=== PATIENT | female | born 1985 | race Caucasian/White ===

== ENCOUNTER → 2016-10-24 | Outpatient (CLI) | payer BC ==
--- NOTE | 2016-10-24 12:42 | Diagnostic Imaging Report ---
Transabdominal and transvaginal pelvic ultrasound. INDICATION: Menorrhagia. FINDINGS: The uterus is 7.6 x 4.4 x 4.2 cm. The endometrial stripe is 0.3 cm in thickness. The myometrium is slightly heterogeneous with no discrete mass. The right ovary is 2.9 x 2.6 x 2.8 cm. The left ovary is 2.1 x 3.2 x 1.6 cm. There are multiple follicles seen in each ovary. There are arterial and venous waveforms demonstrated in each ovary. IMPRESSION: Heterogeneous myometrium with no discrete mass. Consider possibility of adenomyosis. Dictated by: Dictated on workstation # [id number]
== END ==
LOC: RAD 09:29
PROVIDERS: ATTEND Obstetrics & Gynecology
DX: N92.1 Excessive and frequent menstruation with irregular cycle (principal)
CPT/HCPCS: 76830; 76856

== ENCOUNTER → 2017-06-02 | Outpatient (CLI) | payer BC ==
[~2017-06-02] VITALS: Ht 172.7 cm; Wt 105.9 kg
[~2017-06-02] MED LIST: BUPR300T51 PO; FEXO1TAB40 PO; FLUO10CA29 PO; NORT10CA PO; PANT40TA3 PO; PROP20TA5 PO; RANI150T90 PO; SPIR25TA3 PO
[2017-06-02 09:10] VITALS: BP 127/88
[2017-06-02 09:45] LABS: BASOPHILS # (AUTO) 0.1 10^3/uL (0.0-0.1); BASOPHILS % (AUTO) 1 % (0-10); EOSINOPHILS # (AUTO) 0.2 10^3/uL (0.0-0.3); EOSINOPHILS % (AUTO) 2 % (0-10); LYMPHOCYTES # (AUTO) 2.4 X 10^3 (1.0-4.0); LYMPHOCYTES % (AUTO) 31 % (12-44); MEAN CORPUSCULAR HEMOGLOBIN 27 PG (25-34); MEAN CORPUSCULAR HGB CONC 33 G/DL (32-36); MEAN CORPUSCULAR VOLUME 83 FL (80-99); MEAN PLATELET VOLUME 10.2 FL (7.4-10.4); MONOCYTES # (AUTO) 0.6 X 10^3 (0.0-1.0); MONOCYTES % (AUTO) 7 % (0-12); NEUTROPHILS # (AUTO) 4.5 X 10^3 (1.8-7.8); NEUTROPHILS % (AUTO) 59 % (42-75); PLATELET COUNT 381 10^3/uL (130-400); RED BLOOD COUNT 4.67 10^6/uL (4.35-5.85); RED CELL DISTRIBUTION WIDTH 14.2 % (10.0-14.5); WHITE BLOOD COUNT 7.7 10^3/uL (4.3-11.0)
[2017-06-02 09:47] LABS: BILIRUBIN,URINE NEGATIVE (NEGATIVE); KETONES,URINE NEGATIVE (NEGATIVE); LEUKOCYTE ESTERASE ,URINE 3+ (NEGATIVE); NITRITE,URINE NEGATIVE (NEGATIVE); PH,URINE 6 (5-9); PROTEIN,URINE 1+ (NEGATIVE); UROBILINOGEN,URINE NORMAL (NORMAL)
[2017-06-02 10:05] LABS: ANION GAP 11 MMOL/L (5-14); BLOOD UREA NITROGEN 19 MG/DL (7-18); BUN/CREATININE RATIO 22; CALCIUM 8.8 MG/DL (8.5-10.1); CARBON DIOXIDE 21 MMOL/L (21-32); CHLORIDE 106 MMOL/L (98-107); CREATININE SERUM 0.85 MG/DL (0.60-1.30); GFR ESTIMATED > 60; GLUCOSE 80 MG/DL (70-105); POTASSIUM 4.3 MMOL/L (3.6-5.0); SODIUM 138 MMOL/L (135-145)
== END ==
LOC: PREOP 08:55
PROVIDERS: ATTEND Obstetrics & Gynecology
DX: Z01.812 Encounter for preprocedural laboratory examination (principal); N93.8 Other specified abnormal uterine and vaginal bleeding; N80.0 Endometriosis of uterus
CPT/HCPCS: 36415; 80048; 81000; 85025; 86850; 86900; 86901; 87081; 87088

== ENCOUNTER → 2022-09-30 | Outpatient (CLI) | payer BC ==
[~2022-09-30] MED LIST changes: -BUPR300T51 PO; +BUPR300T98 PO; +HYDR-34 PO; +IBUP-1773 PO; -NORT10CA PO; +NRT10C PO; -PANT40TA3 PO; +PANT40TA52 PO; +SIME80TA16 PO; -SPIR25TA3 PO; +SPIR25TA5 PO
--- NOTE | 2022-09-30 09:14 | Diagnostic Imaging Report ---
PROCEDURE: US Gallbladder. TECHNIQUE: Multiple real-time grayscale images were obtained over the right upper quadrant in various projections. INDICATION: Right upper quadrant pain Liver parenchyma is homogeneous with normal echotexture. The portal vein is patent with hepatopetal flow. There are several small stones in the gallbladder. Gallbladder wall is not thickened. There is a negative sonographic Kwon's sign. The common duct is not dilated. Pancreas is normal. Aorta and IVC are normal. Right kidney measures 11 cm length and contains a small cyst. IMPRESSION: Cholecystolithiasis Dictated by: Dictated on workstation # [id number]
== END ==
LOC: RAD 06:35
PROVIDERS: ATTEND Family Medicine
DX: K80.20 Calculus of gallbladder without cholecystitis without obstruction (principal)
CPT/HCPCS: 76705

== ENCOUNTER 2022-10-05 16:45 | Emergency (ER) | payer BC ==
[~2022-10-05] VITALS: Ht 172 cm; Wt 90.0 kg
--- NOTE | 2022-10-05 17:05 | ED Abdominal Pain ---
General Stated Complaint: N/V, ABD/BACK PAIN Source of Information: Patient Exam Limitations: No Limitations History of Present Illness Date Seen by Provider: Oct 05, 2022 Time Seen by Provider: 17:02 Initial Comments Patient is a 36-year-old female with a history of partial hysterectomy, appendectomy who presents ED with epigastric and right upper quad abdominal pain. She reported cute onset 3 hours ago. Described as sharp with radiation to the upper back, right sided abdomen. She states that she did vomited once but did not relieve her pain. She has been having intermittent pain for the past 2 months. She is scheduled to follow-up with Dr. Gutierrez on Friday. She had a ultrasound performed this past Friday that was positive for gallstones. She denies any fever, chills, body aches, diarrhea, dysuria, chest pain, shortness of breath. She states she has been watching her diet. She ate bread around 10 AM. She did drink around 12 PM today Allergies and Home Medications Allergies Coded Allergies: No Known Drug Allergies (Unverified , 06/02/17) Patient Home Medication List Home Medication List Reviewed: Yes Bupropion HCl (Bupropion Xl) 300 Mg Tab.er.24h, 300 MG PO DAILY, (Reported) Entered as Reported by: CHAD QUISPE on 06/02/17905 Fexofenadine/Pseudoephedrine (Liseth-D 12 Hour Tablet) 1 Each Tab.er.12h, 1 EACH PO BID, (Reported) Entered as Reported by: CHAD QUISPE on 06/02/17905 Fluoxetine HCl (Prozac) 10 Mg Capsule, 10 MG PO DAILY, (Reported) Entered as Reported by: CHAD QUISPE on 06/02/17905 Hydrocodone Bit/Acetaminophen (Lortab 7.5 Mg Tablet) 1 Each Tablet, 1-2 EA PO Q6H PRN for PAIN-MODERATE Prescribed by: LIONEL JACKSON on 06/10/17 165 Hydrocodone/Acetaminophen (Hydrocodone-Acetamin 5-325 mg) 5 Mg-325 Mg Tablet, 1 TAB PO Q4H PRN for PAIN-MODERATE (5-7) Prescribed by: CINDY BLANTON on 10/05/221909 Ibuprofen (Ibuprofen) 600 Mg Tablet, 600 MG PO Q6H PRN for PAIN-MILD Prescribed by: LIONEL JACKSON on 06/10/171654 Levofloxacin (Levofloxacin) 750 Mg Tablet, 750 MG PO DAILY Prescribed by: CINDY BLANTON on 10/05/221900 Nortriptyline HCl (Nortriptyline HCl) 10 Mg Capsule, 10 MG PO DAILY, (Reported) Entered as Reported by: CHAD QUISPE on 06/02/17905 Ondansetron (Ondansetron Odt) 4 Mg Tab.rapdis, 4 MG SL Q4H PRN for NAUSEA/VOMITING Prescribed by: CINDY BLANTON on 10/05/221908 Pantoprazole Sodium (Pantoprazole Sodium) 40 Mg Tablet.dr, 40 MG PO DAILY, (Reported) Entered as Reported by: CHAD QUISPE on 06/02/17905 Propranolol HCl (Propranolol HCl) 20 Mg Tablet, 20 MG PO BID, (Reported) Entered as Reported by: CHAD QUISPE on 06/02/17905 Ranitidine HCl (Acid Interventional Technologist (RANITIDINE)) 150 Mg Tablet, 150 MG PO BID, (Reported) Entered as Reported by: CHAD QUISPE on 06/02/17905 Simethicone (Simethicone) 80 Mg Tab.chew, 40 MG PO TID PRN for INDIGESTION Prescribed by: LIONEL JACKSON on 06/10/171653 Spironolactone (Spironolactone) 25 Mg Tablet, 25 MG PO DAILY, (Reported) Entered as Reported by: CHAD QUISPE on 06/02/17905 Review of Systems Review of Systems Constitutional: No chills, No diaphoresis, No malaise, No weakness EENTM: No Eye Pain Respiratory: Denies Cough Cardiovascular: Denies Chest Pain, Denies Edema, Denies Irregular Heart Rate Gastrointestinal: Abdominal Pain; Denies Diarrhea; Nausea, Vomiting Genitourinary: Denies Burning, Denies Discharge Musculoskeletal: No back pain, No joint pain All Other Systems Reviewed Negative Unless Noted: Yes Past Ajoyfnk-Zbgtno-Mbbuyg Hx Seasonal Allergies Seasonal Allergies: Yes Past Medical History Appendectomy Headaches /Migraines Reproductive Disorders: Yes (DUB) Female Reproductive Disorders: Menstrual Problems Sexually Transmitted Disease: No HIV/AIDS: No Gastroesophageal Reflux Loss of Vision: Denies Hearing Impairment: Denies Anxiety, Depression Eczema Adverse Reaction/Blood Tranf: No (HAS HAD BLOOD WITH NO REACTION) Physical Exam Vital Signs Vital Signs - First Documented 10/05/22 16:52 Temp 36.0 Pulse 122 Resp 20 B/P (MAP) 169/112 (131) Pulse Ox 99 O2 Delivery Room Air Capillary Refill : Height/Weight/BMI Height: 5'8.00" Weight: 233lbs. 7.0oz. 105.025844tb; 35.5 BMI Method: General Appearance: WD/WN, no apparent distress HEENT: PERRL/EOMI, normal ENT inspection, TMs normal, pharynx normal Neck: non-tender, full range of motion, supple Respiratory: chest non-tender, lungs clear, normal breath sounds, no respiratory distress, no accessory muscle use Cardiovascular: regular rate, rhythm, no edema, no gallop, no JVD Gastrointestinal: normal bowel sounds, soft, no organomegaly, no pulsatile mass, tenderness (Right upper quadrant tenderness. Epigastric tenderness. Normal bowel sounds throughout. 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, no motor/sensory deficits, alert, normal mood/affect, oriented x 3 Skin: normal color, warm/dry Progress/Results/Core Measures Results/Orders Lab Results Laboratory Tests Test 10/05/22 17:03 Range/Units White Blood Count 12.3 H 4.3-11.0 10^3/uL Red Blood Count 4.52 3.80-5.11 10^6/uL Hemoglobin 13.6 11.5-16.0 g/dL Hematocrit 41 35-52 % Mean Corpuscular Volume 90 80-99 fL Mean Corpuscular Hemoglobin 30 25-34 pg Mean Corpuscular Hemoglobin Concent 34 32-36 g/dL Red Cell Distribution Width 12.8 10.0-14.5 % Platelet Count 382 130-400 10^3/uL Mean Platelet Volume 9.6 9.0-12.2 fL Immature Granulocyte % (Auto) 0 % Neutrophils (%) (Auto) 74 42-75 % Lymphocytes (%) (Auto) 19 12-44 % Monocytes (%) (Auto) 6 0-12 % Eosinophils (%) (Auto) 0 0-10 % Basophils (%) (Auto) 0 0-10 % Neutrophils # (Auto) 9.1 H 1.8-7.8 10^3/uL Lymphocytes # (Auto) 2.4 1.0-4.0 10^3/uL Monocytes # (Auto) 0.7 0.0-1.0 10^3/uL Eosinophils # (Auto) 0.1 0.0-0.3 10^3/uL Basophils # (Auto) 0.1 0.0-0.1 10^3/uL Immature Granulocyte # (Auto) 0.1 0.0-0.1 10^3/uL Urine Color YELLOW Urine Clarity CLEAR Urine pH 6.0 5-9 Urine Specific [place] 1.020 1.016-1.022 Urine Protein NEGATIVE NEGATIVE Urine Glucose (UA) NEGATIVE NEGATIVE Urine Ketones NEGATIVE NEGATIVE Urine Nitrite NEGATIVE NEGATIVE Urine Bilirubin 1+ H NEGATIVE Urine Urobilinogen 1.0 < = 1.0 MG/DL Urine Leukocyte Esterase NEGATIVE NEGATIVE Urine RBC (Auto) TRACE-I H NEGATIVE Urine RBC 0-2 /HPF Urine WBC 0-2 /HPF Urine Squamous Epithelial Cells 2-5 /HPF Urine Crystals NONE /LPF Urine Bacteria TRACE /HPF Urine Casts NONE /LPF Urine Mucus SMALL H /LPF Urine Culture Indicated NO Urine Test NEGATIVE NEGATIVE Sodium Level 141 135-145 MMOL/L Potassium Level 3.3 L 3.6-5.0 MMOL/L Chloride Level 104 98-107 MMOL/L Carbon Dioxide Level 23 21-32 MMOL/L Anion Gap 14 5-14 MMOL/L Blood Urea Nitrogen 10 7-18 MG/DL Creatinine 0.80 0.60-1.30 MG/DL Estimat Glomerular Filtration Rate 97 BUN/Creatinine Ratio 13 Glucose Level 126 H 70-105 MG/DL Calcium Level 8.9 8.5-10.1 MG/DL Corrected Calcium 8.7 8.5-10.1 MG/DL Total Bilirubin 2.1 H 0.1-1.0 MG/DL Aspartate Amino Transf (AST/SGOT) 159 H 5-34 U/L Alanine Aminotransferase (ALT/SGPT) 301 H 0-55 U/L Alkaline Phosphatase 302 H 40-136 U/L Total Protein 7.6 6.4-8.2 GM/DL Albumin 4.3 3.2-4.5 GM/DL Lipase 28 8-78 U/L My Orders Orders - BERNICE LOFTON Cbc With Automated Diff (10/05/22 16:55) Comprehensive Metabolic Panel (10/05/22 16:55) Lipase (10/05/22 16:55) Ua Culture If Indicated (10/05/22 16:55) Iv/Invasive Line Insertion .IV INSERT (10/05/22 16:55) Hcg,Qualitative Urine (10/05/22 16:55) Morphine Injection (Morphine Injection (10/05/22 17:15) Ondansetron Injection (Zofran Injectio (10/05/22 17:15) Ct Abdomen/Pelvis W (10/05/22 17:21) Iohexol Injection (Omnipaque 350 Mg/Ml 1 (10/05/22 17:30) Received Contrast (Hold Metformin- Contr (10/05/22 17:30) Ns (Ivpb) (Sodium Chloride 0.9% Ivpb Bag (10/05/22 17:30) Ns Iv 1000 Ml (Sodium Chloride 0.9%) (10/05/22 18:44) Levofloxacin 750 Mg/150 Ml Iv (Levaquin (10/05/22 18:49) Ns Iv 1000 Ml (Sodium Chloride 0.9%) (10/05/22 18:51) Medications Given in ED Current Medications Medications Dose Ordered Sig/Oliverio Route Start Time Stop Time Status Last Admin Dose Admin Iohexol 100 ml ONCE ONCE IV 10/05/22 17:30 10/05/22 17:31 DC 10/05/22 17:41 80 ML Morphine Sulfate 4 mg ONCE ONCE IVP 10/05/22 17:15 10/05/22 17:16 DC 10/05/22 17:09 4 MG Ondansetron HCl 4 mg ONCE ONCE IVP 10/05/22 17:15 10/05/22 17:16 DC 10/05/22 17:08 4 MG Sodium Chloride 100 ml ONCE ONCE IV 10/05/22 17:30 10/05/22 17:31 DC 10/05/22 17:41 80 ML Vital Signs/I&O 10/05/22 16:52 Temp 36.0 Pulse 122 Resp 20 B/P (MAP) 169/112 (131) Pulse Ox 99 O2 Delivery Room Air Departure Communication (PCP) History of gallstones. Reviewed old ER visits, testing, lab work. She had an ultrasound performed on 30 September showed gallstones without evidence of cholecystitis. Today acute onset of right upper quadrant pain 3 hours upon arrival. 1 episode of vomiting without improvement. Patient with moderate distress on arrival. She was given dose of morphine. Zofran for the nausea. S tarted on a liter of fluid. Due to location of pain CBC, CMP, lipase was ordered. CBC showed elevated white blood count 12.2. She had a slight bump in her liver enzymes and alk phos, and bilirubin. Bilirubin 2.1, AST 159, ALT 301, alk phos, 302. Concerning for obstructing stone. CT abdomen pelvis was ordered to rule out cholecystitis, pancreatitis, duodenitis, gastritis. Cholelithiasis with mild gallbladder wall thickening and slight pericholecystic stranding but no bile duct dilation opaque choledocholithiasis or acute pancreatic abnormality. Patient is currently pain-free. Discussed patient with Dr. Gutierrez general surgeon who recommends starting on Levaquin. As long as patient is pain-free patient can follow-up in the office on Friday to discuss surgery later that day or Friday morning. N.p.o. after midnight on friday. Clear liquid fluids until then. Start on Levaquin. She was given initial dose here in the ED. If any worsening symptoms to return back to ED. Impression Primary Impression: Cholecystitis Disposition: HOME, SELF-CARE Condition: Stable Departure-Patient Inst. Decision time for Depature: 18:50 Referrals: SHAWNEE GUTIERREZ JACQUELINE S DO (PCP/Family) Primary Care Physician Patient Instructions: Gallstones ED Add. Discharge Instructions: Take Levaquin antibiotic. N.p.o. after midnight on Friday. Clear liquids till Friday evening. Follow-up with Dr. Gutierrez. Friday possible surgery on Friday or early Friday. Pain medication as needed. If any worsening symptoms return back to ED Scripts Hydrocodone/Acetaminophen (Hydrocodone-Acetamin 5-325 mg) 5 Mg-325 Mg Tablet 1 TAB PO Q4H PRN for PAIN-MODERATE (5-7), #6 TAB Prov: LOFTON,BERNICE A PA 10/05/22 Ondansetron (Ondansetron Odt) 4 Mg Tab.rapdis 4 MG SL Q4H PRN for NAUSEA/VOMITING, #6 TAB Prov: BERNICE LOFTON 10/05/22 Levofloxacin (Levofloxacin) 750 Mg Tablet 750 MG PO DAILY for 4 Days, #4 TAB Prov: BERNICE LOFTON 10/05/22 Work/School Note: Work Release Form Date Seen in the Emergency Department: Oct 05, 2022 Return to Work: Oct 09, 2022 BERNICE LOFTON Oct 05, 2022 17:05
[2022-10-05 17:10] LABS: BASOPHILS # (AUTO) 0.1 10^3/uL (0.0-0.1); BASOPHILS % (AUTO) 0 % (0-10); EOSINOPHILS # (AUTO) 0.1 10^3/uL (0.0-0.3); EOSINOPHILS % (AUTO) 0 % (0-10); HEMATOCRIT 41 % (35-52); HEMOGLOBIN 13.6 g/dL (11.5-16.0); LYMPHOCYTES # (AUTO) 2.4 10^3/uL (1.0-4.0); LYMPHOCYTES % (AUTO) 19 % (12-44); MEAN CORPUSCULAR HEMOGLOBIN 30 pg (25-34); MEAN CORPUSCULAR HGB CONC 34 g/dL (32-36); MEAN CORPUSCULAR VOLUME 90 fL (80-99); MEAN PLATELET VOLUME 9.6 fL (9.0-12.2); MONOCYTES # (AUTO) 0.7 10^3/uL (0.0-1.0); MONOCYTES % (AUTO) 6 % (0-12); NEUTROPHILS # (AUTO) 9.1 10^3/uL (1.8-7.8); NEUTROPHILS % (AUTO) 74 % (42-75); PLATELET COUNT 382 10^3/uL (130-400); WHITE BLOOD COUNT 12.3 10^3/uL (4.3-11.0)
[2022-10-05 17:11] LABS: CLARITY,URINE CLEAR; COLOR,URINE YELLOW; GLUCOSE, URINE (UA) NEGATIVE (NEGATIVE); KETONES,URINE NEGATIVE (NEGATIVE); LEUKOCYTE ESTERASE ,URINE NEGATIVE (NEGATIVE); NITRITE,URINE NEGATIVE (NEGATIVE); PROTEIN,URINE NEGATIVE (NEGATIVE)
[2022-10-05] MEDS ORDERED: morphine INJ 10 MG/ML 1ML (SYR OR VIAL) IVP ONE (17:15)
[2022-10-05] MEDS ORDERED: ONDANSETRON 4 MG/2 ML (SDV) Z0FRAN IVP ONE (17:15)
[2022-10-05 17:21] LABS: BACTERIA,URINE TRACE /HPF; BILIRUBIN,URINE 1+ (NEGATIVE); RBC,URINE 0-2 /HPF; WBC,URINE 0-2 /HPF
[2022-10-05 17:24] LABS: ALBUMIN 4.3 GM/DL (3.2-4.5); POTASSIUM 3.3 MMOL/L (3.6-5.0)
[2022-10-05 17:26] LABS: CALCIUM 8.9 MG/DL (8.5-10.1)
[2022-10-05 17:27] LABS: TOTAL PROTEIN 7.6 GM/DL (6.4-8.2)
[2022-10-05 17:29] LABS: BILIRUBIN,TOTAL 2.1 MG/DL (0.1-1.0)
[2022-10-05 17:30] LABS: CREATININE SERUM 0.8 MG/DL (0.60-1.30)
[2022-10-05] MEDS ORDERED: IOHEXOL 350 MG/ML 100 ML (OMNIPAQUE 350) VIAL IV ONE (17:30)
[2022-10-05] MEDS ORDERED: NS 100 ML (IVPB) BAG IV ONE (17:30)
[2022-10-05] MEDS ORDERED: HOLD METFORMIN - RECEIVED CONTRAST 20 ML VIAL IV SCH (17:30)
--- NOTE | 2022-10-05 17:57 | Diagnostic Imaging Report ---
PROCEDURE: CT abdomen and pelvis with contrast. TECHNIQUE: Multiple contiguous axial images were obtained through the abdomen and pelvis after administration of intravenous contrast. Auto Exposure Controls were utilized during the CT exam to meet ALARA standards for radiation dose reduction. All CT scans use one or more of the following dose optimizing techniques: automated exposure control, MA and/or KvP adjustment based on patient size and exam type or iterative reconstruction. INDICATION: Three hours of pain. Patient has gallstones. FINDINGS: Gallbladder is nondistended however its wall appears at least mildly thickened and there is suggestion of some slight pericholecystic stranding of the adjacent fat. Changes of acute cholecystitis could not be excluded or confirmed at this exam. There is no intrahepatic or extrahepatic bile duct dilatation and no radiopaque stone along the course of the common bile duct. The pancreas, its duct and the peripancreatic fat are normal. Liver parenchyma normal. The spleen, adrenals and unobstructed kidneys are normal. There is no appendicitis or diverticulitis. No ascites, abscess, hematoma or acute fluid collection. No abnormal fecal loading. No bowel obstruction. Uterus absent or atrophic. There is no adnexal lesion. The urinary bladder unremarkable. Some follicular cysts in the ovaries incidentally noted. No acute bony pathology and the lung bases unremarkable. IMPRESSION: 1. Cholelithiasis with mild gallbladder wall thickening and equivocal slight pericholecystic stranding but no bile duct dilatation, opaque choledocholithiasis or acute pancreatic abnormality. 2. Remaining solid and hollow viscus unremarkable. Dictated by: Dictated on workstation # [id number]
[2022-10-05] MEDS ORDERED: NS IV 1000 ML 1,000 ML IV STA (18:44)
[2022-10-05] MEDS ORDERED: NS IV 1000 ML 1,000 ML ONE (18:51)
[2022-10-05] MEDS ORDERED: LEVO750T PO (19:01)
[2022-10-05] MEDS ORDERED: ONDA4TAB11 SL (19:09)
[2022-10-05] MEDS ORDERED: ACHD5005 PO (19:09)
[2022-10-05 21:28] VITALS: BP 153/99
== END 2022-10-05 21:28 | disposition home or self-care (01) ==
LOC: EDUNIT# 16:45 → ER 16:47
DX: K81.9 Cholecystitis, unspecified (principal); K82.8 Other specified diseases of gallbladder; Z90.49 Acquired absence of other specified parts of digestive tract
CPT/HCPCS: 36415; 74177; 80053; 81000; 83690; 84703; 85025

== ENCOUNTER 2022-10-07 09:53 | Day surgery (SDC) | payer BC ==
[~2022-10-07] VITALS: Ht 172 cm; Wt 93.6 kg
[2022-10-07] VITALS (11 sets, daily range): BP systolic 140–162; BP diastolic 89–109
[~2022-10-07 09:53] MED LIST changes: +ACHD5005 PO; +LEVO750T PO; +ONDA4TAB11 SL
[2022-10-07] MEDS ORDERED: BUP/EPI 0.5% 1:200,000 (SENSORCAINE) 30 ML VIAL ONE (10:06)
[2022-10-07] MEDS ORDERED: NS (IVPB) 50 ML ONE (10:41)
[2022-10-07] MEDS ORDERED: IOHEXOL 300 MG/ML 100 ML (OMNIPAQUE 300) VIAL INJ ONE (10:41)
[2022-10-07] MEDS ORDERED: BUP/EPI 0.5% 1:200,000 (SENSORCAINE) 30 ML VIAL INJ ONE (10:41)
[2022-10-07] MEDS ORDERED: LACTATED RINGERS 1,000 ML IV PRN (10:45)
[2022-10-07] MEDS ORDERED: LIDOCAINE PF 2% 5 ML (XYLOCAINE) VIAL ONE (11:05)
[2022-10-07] MEDS ORDERED: proPOfol 200 MG/20 ML (DIPRIVAN) VIAL IV ONE (11:05)
[2022-10-07] MEDS ORDERED: fentaNYL INJ 100 MCG/2 ML AMP ONE ×2 (11:05→11:55)
[2022-10-07] MEDS ORDERED: MIDAZOLAM 2 MG/2 ML (VERSED) VIAL ONE (11:06)
--- NOTE | 2022-10-07 11:31 | Progress Note-Pre Operative ---
Pre-Operative Progress Note Date H&P Reviewed: Oct 07, 2022 Time H&P Reviewed: 11:31 History & Physical: H&P Reviewed, Patient Examed, No changes noted Pre-Operative Diagnosis: cholelithiasis SHAWNEE GUTIERREZ DO Oct 07, 2022 11:31
[2022-10-07] MEDS: ceFAZolin INJECTION 2,000 MG ONE (11:38)
[2022-10-07] MEDS ORDERED: ceFAZolin INJECTION 2,000 MG IV ONE (12:03)
[2022-10-07] MEDS ORDERED: GLYCOPYRROLATE 0.2 MG/ML (ROBINUL) 2 ML VIAL ONE ×2 (12:27→12:28)
[2022-10-07] MEDS ORDERED: NEOSTIGMINE (BLOXIVERZ ) 1 MG/1ML 10 ML VIAL ONE (12:27)
[2022-10-07] MEDS ORDERED: PHENYLEPHRINE 100 MCG/ML 10 ML (ANESTHESIA) SYR ONE (12:28)
[2022-10-07] MEDS ORDERED: ROCURONIUM 50 MG/5 ML (ZEMURON) VIAL IV ONE (12:29)
[2022-10-07] MEDS ORDERED: SEVOFLURANE (ULTANE) 15 ML INHAL SOLN ONE (12:29)
[2022-10-07] MEDS ORDERED: ONDANSETRON 4 MG/2 ML (SDV) Z0FRAN ONE (12:30)
[2022-10-07] MEDS ORDERED: ACHD5005 PO (12:38)
[2022-10-07] MEDS ORDERED: DOCU-143 PO (12:38)
--- NOTE | 2022-10-07 12:41 | Discharge Inst-Simple/Standard ---
Discharge Inst-Standard Discharge Medications New, Converted or Re-Newed RX: Transmitted to Pharmacy Patient Instructions/Follow Up Plan of Care/Instructions/FU: 2 weeks Misha Nothing to drink after midnight, will need ERCP procedure tomorrow with Dr. Harper. Will notify you with time. Activity as Tolerated: No Discharge Diet: Liquid Diet (nothing to eat or drink after midnight tonight for procedure tomorrow.) Other Inst to Patient Follow up Appt: Make appointment for [address] Harper tomorrow for ERCP procedure. Instructions: No lifting greater than 10 pounds. No strenuous activity. May shower in 24 hours, no tub bath or soaking. Use incentive spirometer at home as directed. No Smoking Skin/Wound Care: You have special glue over incision, it will fall off on it's own. Symptoms to Report: Appetite Changes, Extremity Discoloration, Numbness/Tingling, Swelling Increased, Bleeding Excessive, Eyesight Changes, Pain Increased, Urine Color Change, Constipation(Persistent), Fever over 101 degree F, Pain/Pressure in chest, Urinating Difficulty, Cough Up/Vomit Blood, Heart Beat Irreg/Pounding, Pain/Pressure in jaw, Vaginal Bleeding Increase, Cramps in feet or legs, Lig htheadedness, Pain/Pressure in shoulder, Diarrhea(Persistent), Memory Changes Suddenly, Questions/Concerns, Weight gain consecutive days, Dizziness/Fainting, Nausea/Vomiting, Shortness of Breath, Weight gain over 2 pounds. If eyes or skin turn yellow notify physician. If questions or concerns contact your physician Or seek help at emergency department. SHAWNEE GUTIERREZ DO Oct 07, 2022 12:41
--- NOTE | 2022-10-07 12:44 | Anesthesia-General Post-Op ---
General Patient Condition Mental Status/LOC: Same as Preop Cardiovascular: Satisfactory Nausea/Vomiting: Absent Respiratory: Satisfactory Pain: Controlled Complications: Absent Post Op Complications Complications None Follow Up Care/Instructions Patient Instructions None needed. Anesthesia/Patient Condition Patient Condition Patient is doing well, no complaints, stable vital signs, no apparent adverse anesthesia problems. No complications reported per nursing. IRWIN HERNANDEZ CRNA Oct 07, 2022 12:44
[2022-10-07] MEDS ORDERED: HYDROmorphone 2 MG/ML VIAL (DILAUDID) IV ONE (12:45)
[2022-10-07] MEDS ORDERED: ONDANSETRON 4 MG/2 ML (SDV) Z0FRAN IVP PRN (12:45)
--- NOTE | 2022-10-07 12:45 | Progress Note-Post Operative ---
Post-Operative Progess Note Surgeon (s)/Sexton Helper (s) Surgeon SHAWNEE GUTIERREZ DO Se[place] Helper: Dr. Saul to assist in retraction dissection and closure. Pre-Operative Diagnosis cholelithiasis Post-Operative Diagnosis cholecystitis c choledocholithiasis Procedure & Operative Findings Date of Procedure 10/07/22 Procedure Performed/Findings PROCEDURE: Laparoscopic cholecystectomy with intraoperative cholangiogram. COMPLICATIONS: None. PROCEDURE: The patient was taken to the operating suite and was prepped and draped in sterile fashion. A surgical pause was performed. Just superior to the umbilicus, a 12 mm incision was made. Dissection was taken down to the fascia, which was then scored and grasped with a John and the abdomen was then entered. A 0 Vicryl suture was placed in a [id number]-[id number] fashion and a Ford trocar was placed and secured. Pneumoperitoneum was achieved. A 5mm trochar place in the subxyphoid and 2 in the right upper quadrant. The gallbladder was then grasped and elevated. Adhesions to the gallbladder were taken down. The cystic duct, and cystic artery were then dissected out. Clip was placed on the distal portion of the cystic duct which was then partially transected. An arrow catheter was inserted into the duct. The cholangiogram was then performed. Distal common bile duct filing defects present and some contrast made its way into the duodenum. Catheter removed. Clips were placed on proximal portion of the cystic duct and then the duct was then transected. Clips were placed along the proximal and distal portion of the cystic artery which was then transected. Hook cautery was used to dissect the gallbladder from the gallbladder fossa achieving hemostasis. Edema around the gallbladder The gallbladder was placed in an Endobag and removed through the 12 mm trocar site. The abdomen was then reinspected. Copious amounts of irrigation were used to irrigate the abdomen and there were no signs of active bleeding. Hemostasis had been achieved. The 12 mm fascial defect was then closed with 0 Vicryl suture that had been placed in a krehlg-ka-bywqm fashion. The abdomen was then desufflated, the trocars were removed. The abdomen was then washed and dried. The skin was then closed using 4-0 Monocryl in a subcuticular fashion. The abdomen was washed and dried and Skin Affix was place over incisions. Patient tolerated the procedure well without any complications and was taken to the recovery room in stable condition. Anesthesia Type general Estimated Blood Loss Estimated blood loss (mL): minimal Specimens/Packing Specimens Removed gallbladder SHAWNEE GUTIERREZ DO Oct 07, 2022 12:45
[2022-10-07] MEDS ORDERED: HYDROcodone/APAP 5 MG/325 MG (LORTAB) TAB ONE (13:40)
[2022-10-07] MEDS ORDERED: HYDROcodone/APAP 5 MG/325 MG (LORTAB) TAB PO ONE (13:45)
--- NOTE | 2022-10-07 22:15 | Diagnostic Imaging Report ---
Reason for exam: Laparoscopic cholecystectomy with cholangiogram. Right upper quadrant pain. Comparison: 10/05/2022. Technique: 61 intraoperative fluoroscopic images of the right upper quadrant. Fluoroscopic Time: 11.8 seconds Findings/ Impression: Intraoperative fluoroscopic images were obtained during laparoscopic cholecystectomy and cholangiogram. Dictated by: Dictated on workstation # [id number]
== END 2022-10-07 14:40 | disposition home or self-care (01) ==
LOC: SDC 09:53
PROVIDERS: ATTEND Surgery
DX: K80.66 Calculus of gallbladder and bile duct with acute and chronic cholecystitis without obstruction (principal); E66.9 Obesity, unspecified; Z28.310 Unvaccinated for COVID-19; Z68.31 Body mass index [BMI] 31.0-31.9, adult
CPT/HCPCS: 76000; 87081; 88304; 94664